=== PATIENT | female | born 1985 | race African-American/Black ===

== ENCOUNTER 2021-02-17 11:21 | Emergency (ER) | payer MEDICAID ==
[~2021-02-17] VITALS: Ht 170.2 cm; Wt 79.0 kg
[2021-02-17] MEDS ORDERED: ONDANSETRON HCL 4MG/2ML INJ IV STA (11:48)
[2021-02-17] MEDS ORDERED: FAMOTIDINE 20MG/2ML VIAL IV STA (11:48)
[2021-02-17 12:00] LABS: BASOPHILS % 1.4 % (0.0-2.0); EOSINOPHILS % 1.4 % (0.0-5.0); HEMOGLOBIN. 13.6 g/dL (12.0-16.0); LYMPHOCYTES % 36.2 % (20.0-50.0); MEAN CORPUSCULAR HEMOGLOBIN 33.6 pg (28.0-32.0); MEAN CORPUSCULAR VOLUME 98.4 fL (81.0-99.0); MEAN PLATELET VOLUME 7.3 fl (7.4-10.4); MONOCYTES % 11.7 % (2.0-8.0); NEUTROPHILS % 49.3 % (40.0-76.0); PLATELET 297 x1000/uL (130-400); RED BLOOD CELL COUNT 4.07 mill/uL (4.2-5.4); RED CELL DISTRIBUTION WIDTH 14.7 % (11.6-14.6)
[2021-02-17] MEDS ORDERED: SODIUM CHLORIDE 0.9% 1,000 ML IV ONE (12:00)
[2021-02-17 12:06] LABS: CHLORIDE 112 mEq/L (98-107)
[2021-02-17 12:23] LABS: HCG SCREEN NEGATIVE
[2021-02-17 12:30] VITALS: BP 130/70
[2021-02-17 14:08] LABS: ETHANOL BLOOD 308 mg/dL
== END 2021-02-17 13:20 | disposition left against medical advice (07) ==
LOC: ER 11:21
DX: R10.84 Generalized abdominal pain (principal); R11.2 Nausea with vomiting, unspecified; F10.129 Alcohol abuse with intoxication, unspecified; J45.909 Unspecified asthma, uncomplicated; Y90.8 Blood alcohol level of 240 mg/100 ml or more
CPT/HCPCS: 36415; 80053; 80320; 83690; 84703; 85025; 93005; 96361; 96374; 96375; 99284; J2405; J3490; J7030; Z7610; G0480

== ENCOUNTER 2025-02-17 11:25 | Emergency (ER) | payer MEDICAID ==
[~2025-02-17] VITALS: Ht 172.7 cm; Wt 78.0 kg
[2025-02-17 11:35] VITALS: O2SAT 100
[2025-02-17] MEDS ORDERED: AMOX1TAB49 MT (11:55)
[2025-02-17] MEDS ORDERED: ACET-2708 MT (12:03)
[2025-02-17] MEDS: TETANUS, DIPHTHERIA, PERTUSSIS VAC/PF 0.5ML (>10YR OLD) IM ONE (12:28)
[2025-02-17 12:29] VITALS: BP 120/78; PULSE 80; RESP 16; TEMP 36.7; O2SAT 100
== END 2025-02-17 12:30 | disposition home or self-care (01) ==
LOC: ER 11:25
DX: T14.8XXA Other injury of unspecified body region, initial encounter (principal); J45.909 Unspecified asthma, uncomplicated; W54.0XXA Bitten by dog, initial encounter; Y93.89 Activity, other specified; Y92.89 Other specified places as the place of occurrence of the external cause; Y99.8 Other external cause status
CPT/HCPCS: 90471; 90715; 99283